=== PATIENT | male | born 1960 | race Caucasian/White ===

== ENCOUNTER 2017-12-14 05:53 | Inpatient (IN) | payer MEDICARE ==
[2017-12-14] VITALS (23 sets, daily range): BP systolic 132–169; BP diastolic 62–96
[~2017-12-14] VITALS: Ht 170.2 cm; Wt 161.5 kg
[2017-12-14 06:30] LABS: BASOPHILS % 0.3 % (0.0-1.0); EOSINOPHILS # (AUTO) 0.5 (0.0-0.4); EOSINOPHILS % 4.5 % (0.0-6.0); HEMATOCRIT 24.9 % (38.2-49.6); HEMOGLOBIN 7.4 g/dL (14.0-18.0); LYMPHOCYTES # (AUTO) 1.9 (1.0-3.2); LYMPHOCYTES % 18.3 % (18.0-39.1); MEAN CORPUSCULAR HEMOGLOBIN 26.5 pg (28-32); MEAN CORPUSCULAR HGB CONC 29.7 g/dL (31-35); MEAN CORPUSCULAR VOLUME 89.2 fL (81-99); MONOCYTES # (AUTO) 0.9 (0.2-0.8); MONOCYTES % 9.3 % (4.4-11.3); NEUTROPHILS # (AUTO) 6.8 (2.1-6.9); PLATELET COUNT 232 x10e3/uL (140-360); RED BLOOD COUNT 2.79 x10e6/uL (4.3-5.7); RED CELL DISTRIBUTION WIDTH 16.9 % (11.7-14.4)
[2017-12-14 06:42] LABS: INR 1.39
[2017-12-14 06:43] LABS: PARTIAL THROMBOPLASTIN TIME 38.2 seconds (23.8-35.5)
[2017-12-14 06:50] LABS: ALBUMIN 2.6 g/dL (3.5-5.0); ALBUMIN/GLOBULIN RATIO 0.6 (0.8-2.0); ANION GAP 13.1 mmol/L (8-16); CALCIUM 9.2 mg/dL (8.4-10.2); CREATININE, SERUM 1.35 mg/dL (0.72-1.25); POTASSIUM 4.1 mmol/L (3.5-5.1)
[2017-12-14 06:56] LABS: CREATINE KINASE MB 0.9 ng/mL (0-5.0)
--- NOTE | 2017-12-14 07:00 | Diagnostic Imaging Report ---
EXAM: CHEST SINGLE (PORTABLE), AP 1 view INDICATION: Shortness of breath COMPARISON: None FINDINGS: LINES/TUBES: Tracheostomy tube LUNGS: Pulmonary edema PLEURA: Likely small bilateral pleural effusions. HEART AND MEDIASTINUM: Enlargement of the cardiomediastinal silhouette. BONES AND SOFT TISSUES: No acute findings. IMPRESSION: Cardiomegaly and pulmonary edema. Signed by: Dr. Shayy Miranda M.D. on 12/14/2017 6:56 AM
[2017-12-14] MEDS ORDERED: DEXTROSE 50% SYRINGE 50 ML IV PRN (07:15)
[2017-12-14] MEDS ORDERED: FUROSEMIDE INJ 10 MG/ML 4 ML VIAL IV ONE ×2 (07:15→13:00)
[2017-12-14] MEDS ORDERED: SODIUM CHLORIDE 0.9% 250ML 250 ML IV ONE (07:15)
[2017-12-14] MEDS: INSULIN REGULAR, HUMAN 100 UNIT/1 ML 3ML VIAL SQ SCH ×4 (10:00→21:00)
[2017-12-14] MEDS: FUROSEMIDE INJ 10 MG/ML 2 ML VIAL IV SCH ×2 (12:00→14:16)
--- NOTE | 2017-12-14 13:44 | History and Physical ---
CHIEF COMPLAINT: Shortness of breath and hypoxia. HISTORY OF PRESENT ILLNESS: This is a 57-year-old white man who was [facility], to [facility] emergency room because of worsening shortness of breath and hypoxia. Patient was also found to have a hemoglobin of 7.1 g/dl at the penitentiary facility. Here at [facility] the patient was found to have a hemoglobin of 7.4 g/dl with an RDW of 16.9 and MCV 89. Patient's white blood cell count was 10,000 with 67% segmented neutrophils. The patient's PT and INR were 16 and 1.39 respectively. Patient's BUN and creatinine were 30 and 1.35 respectively. Patient's B-type natriuretic peptide was high at 1190. Patient had a chest x-ray done in the emergency room which revealed cardiomegaly and pulmonary edema. The patient denies any melena or hematochezia. Patient states that he has had shortness of breath for the past few days. Patient has a tracheostomy tube in place due to chronic respiratory failure. Patient was placed on the ventilator when he arrived here in the emergency room late last night. Patient will be admitted to the intensive care unit for further evaluation and treatment. REVIEW OF SYSTEMS GENERAL: Weight has been stable. No fever or chills. HEENT: No headaches. No visual changes. CARDIOVASCULAR/RESPIRATORY: Worsening shortness of breath the last few days. Denies any cough. GI: Denies any melena or hematochezia. : Denies any UTI symptoms. NEUROMUSCULAR: No limb weakness or numbness, but he has been bedbound for the last 2 months. ALLERGIES: PENICILLIN. PAST MEDICAL HISTORY 1. Chronic respiratory failure (patient has a tracheostomy tube in place). 2. Hypertensive heart disease. 3. Extreme obesity. 4. Stage 3 chronic kidney disease. 5. Polysubstance abuse (history of methamphetamine and crack cocaine use). 6. Chronic oxygen use. FAMILY HISTORY: Multiple family members with diabetes mellitus. SOCIAL HISTORY: This man is single. Previously he was living with his adult brother in a house. Patient does not smoke tobacco, but in the past he smoked methamphetamine as well as crack cocaine. Drinks alcohol rarely. He is employed as a computer application integration architect. SURGICAL HISTORY 1. Tracheostomy tube placement twice. 2. Tonsillectomy. 3. Forehead cyst removal. 4. Abdominal hernia repair. 5. G-tube placement and removal. LONG TERM MEDICATIONS: Not available. PHYSICAL EXAMINATION GENERAL: He is awake, alert and fully oriented. He is on a ventilator via the tracheostomy tube. He can vocalize without difficulty. He does not appear to be in any distress. He is very pleasant and cooperative with exam. VITAL SIGNS: Height is 5 feet 10 inches. Weight is 340 pounds. Calculated body mass index is 53. Blood pressure 139/57, pulse 90, respiratory rate is 18, oxygen saturation is 100% on ventilator, temperature is 98.1. INTEGUMENT: Skin is warm and dry. Slight pallor. No jaundice, diaphoresis. HEENT: Anicteric sclerae with moist mucous membranes. NECK: Supple. He has a tracheostomy tube in place which is connected to the ventilator. CARDIOVASCULAR: Distant heart sounds. Tachycardic rate with regular rhythm. Patient has an S3 gallop. LUNGS: No rales, no rhonchi, no wheezes. ABDOMEN: Obese yet benign. EXTREMITIES: No edema or deformity. NEUROLOGICALLY: Intact. DIAGNOSES 1. Hbwyv-he-chxcssc respiratory failure likely secondary to acute congestive heart failure. 2. Chronic respiratory failure (a tracheostomy tube in place). 3. Imcub-tp-wbealkd systolic congestive heart failure likely exacerbated by the patient's acute anemia. 4. High output failure secondary to acute anemia. 5. Cerebrovascular disease. 6. Debility. 7. Extreme obesity, body mass index of 53. 8. Stage 3 chronic kidney disease. PLAN 1. Hemoccult stool. 2. Transfuse blood. 3. Intravenous furosemide. 4. Order 2-D echocardiogram. 5. Follow renal function. 6. Consult risk specialist to help with ventilator management. 7. I recommend that patient avoid all illicit drugs, particularly stimulants such as methamphetamines and cocaine. 8. Rule out myocardial infarction. I spent 75 minutes in the care of this intensive care unit patient. Job#: [id number] EV [email or web address]
[2017-12-14] MEDS ORDERED: MEROPENEM 1GM 100 ML IV SCH (14:00)
[2017-12-14 14:27] LABS: CREATINE KINASE MB 0.9 ng/mL (0-5.0)
[2017-12-14] MEDS ORDERED: NORCO 7.5-3251 EACH PO (14:58)
[2017-12-14] MEDS ORDERED: GABAPENTIN300 MG PO (14:58)
[2017-12-14] MEDS ORDERED: VITAMIN D35000 UNI1 PO (14:58)
[2017-12-14] MEDS ORDERED: FINASTERIDE5 MG PO (14:58)
[2017-12-14] MEDS ORDERED: COENZYME Q10100 M1 PO (14:58)
[2017-12-14] MEDS ORDERED: IPRAT-ALBUT 0.5-3 ML INH (14:58)
[2017-12-14] MEDS ORDERED: FLOMAX0.4 MG PO (14:58)
[2017-12-14] MEDS ORDERED: COLACE100 MG PO (14:58)
[2017-12-14] MEDS ORDERED: COZAAR100 MG PO (14:58)
[2017-12-14] MEDS ORDERED: NOVOLOG100 UNITS1 (14:58)
[2017-12-14] MEDS ORDERED: METHOCARBAMOL750 MG PO (14:58)
[2017-12-14] MEDS ORDERED: LASIX20 MG PO (14:58)
[2017-12-14] MEDS ORDERED: EMU-LAC HYDRAT120 ML TOP (14:58)
[2017-12-14] MEDS ORDERED: LEVEMIR100 UNIT/1 SC ×2 (14:58)
[2017-12-14] MEDS ORDERED: POLYETHYLENE GL17 GM PO (14:58)
[2017-12-14] MEDS ORDERED: PANTOPRAZOLE SO40 MG PO (14:58)
[2017-12-14] MEDS ORDERED: BENADRYL25 M1 PO (14:58)
[2017-12-14] MEDS ORDERED: OCUVITE TABLET1 EAC1 PO (14:58)
[2017-12-14] MEDS ORDERED: METOPROLOL TART25 MG PO (14:58)
[2017-12-14] MEDS ORDERED: ASPIRIN CHEW81 MG PO (14:58)
[2017-12-14] MEDS ORDERED: PRANDIN1 MG PO (14:58)
[2017-12-14] MEDS ORDERED: ZINC OXIDE56.7 GM (14:58)
[2017-12-14] MEDS ORDERED: MAGNESIUM OXID400 MG PO (14:58)
[2017-12-14] MEDS ORDERED: LEVAQUIN250 MG PO (14:58)
[2017-12-14] MEDS ORDERED: MUPIROCIN22 GM TOP (14:58)
--- NOTE | 2017-12-14 16:10 | Consultation ---
DATE OF CONSULTATION: December 14, 2017 PULMONARY CONSULTATION REASON FOR CONSULTATION: Tracheostomy, shortness of breath. HISTORY OF PRESENT ILLNESS: Mr. Michel is a 57-year-old male known to me from [facility]. Patient was transferred to [facility] from long-term acute care. He has been bedbound for almost 12 to 13 years. It started with a stroke. He has history of cardiomyopathy, chronic wounds in the leg and chronic venous stasis in the leg as well. He had a history of obstructive sleep apnea before the tracheostomy. He required prolonged weaning, what he described as was having pneumonia. The records were not very clear why he got pneumonia, and he was initially on a ventilator, then required prolonged weaning and that resulted in a tracheostomy. Recently I was treating him for pneumonia at [facility] as patient's secretions were increasing. His oxygen requirement was increasing, and he was bringing up phlegm as well. His chest x-ray showed bilateral infiltrate. He was sent here because, according to the patient, the trach tube dislodged and oxygen saturation went down to 84% and he was sent here. He is doing very well now. He is on mechanical ventilator, and settings were reviewed. He is able to eat with mechanical ventilator, which he was doing at [facility]. REVIEW OF SYSTEMS: GENERAL: Denies any chills. HEAD: Denies any head trauma. ENT: Denies any earache. CVS: Denies any chest pain. RESPIRATORY: Shortness of breath. GI: Denies any nausea or vomiting. REST OF THE REVIEW OF SYSTEMS: Negative except as in history of present illness. PAST MEDICAL HISTORY: Hypertension, diabetes, morbid obesity, history of obstructive sleep apnea, history of congestive heart failure, history of multiple strokes in the past, and patient has been bedbound with chronic skin changes in both lower extremities, chronic ulcers in both lower extremities. FAMILY AND SOCIAL HISTORY: He does not smoke, does not drink. Lives at [facility] correction. PHYSICAL EXAMINATION: VITALS: Temperature 98.3, pulse of 53, blood pressure 109/50, respiratory rate of 18. O2 sat 97%. HEENT: Head atraumatic, normocephalic. NECK: Supple. He had tracheostomy. CHEST: Crackles bilaterally. HEART: S1 and S2 audible. ABDOMEN: Soft, distended. EXTREMITIES: Bilateral pedal edema and chronic skin changes. NEUROLOGIC: He is awake, alert, oriented, following commands. LABORATORY DATA: White count of 10,000. Hemoglobin 7.4. Platelets 232. CHEMISTRY: Sodium 141, potassium 4.1, chloride 99, BUN 30, bicarb 33, creatinine 1.35. BNP was 1190. IMPRESSION: Mr. Michel is a 57-year-old male who has a history of being bedbound due to strokes. He has history of chronic tracheostomy, chronic ventilator. Patient has been in bedbound situation for almost 12+ years. Currently he was sent here for hypoxia and dislodgement of the tracheostomy tube. CURRENT PROBLEMS: 1. Chronic hypoxic and hypercapnic respiratory failure. 2. Tracheostomy tube. 3. Chest x-ray reviewed. Likely has fluid overload and congestive heart failure. Possibility of pneumonia cannot be ruled out. 4. Chronic skin changes and venous stasis in both lower extremities. 5. Bedbound. PLAN: 1. I will start the patient on IV aztreonam and send off sputum cultures. 2. Will give another dose of Lasix 40 mg IV. Patient received 80 IV in the emergency room. 3. Continue the patient on ventilator for now. We tried weaning him from the ventilator at [facility], and he is still on pressure support and SIMV and we were unable to wean him from the ventilator completely. 4. He has been eating with the ventilator, which will be continued. 5. Anemia. Etiology not clear. Patient receiving blood transfusion. Will need workup for anemia. Thank you for this consult. CC TIME 45 MIN Job#: [id number] EV MTDJennifer
[2017-12-14] MEDS: MEROPENEM 1 GM VIAL IV SCH (23:21)
[2017-12-15] VITALS (78 sets, daily range): BP systolic 98–181; BP diastolic 57–138
[2017-12-15 02:43] LABS: CREATINE KINASE MB 0.8 ng/mL (0-5.0)
[2017-12-15 05:07] LABS: BASOPHILS % 0.3 % (0.0-1.0); EOSINOPHILS # (AUTO) 0.4 (0.0-0.4); EOSINOPHILS % 4.8 % (0.0-6.0); HEMATOCRIT 26.6 % (38.2-49.6); LYMPHOCYTES # (AUTO) 1.4 (1.0-3.2); LYMPHOCYTES % 15.8 % (18.0-39.1); MEAN CORPUSCULAR HEMOGLOBIN 26.5 pg (28-32); MEAN CORPUSCULAR HGB CONC 30.1 g/dL (31-35); MEAN CORPUSCULAR VOLUME 88.1 fL (81-99); MONOCYTES # (AUTO) 0.8 (0.2-0.8); MONOCYTES % 9.1 % (4.4-11.3); NEUTROPHILS # (AUTO) 6.1 (2.1-6.9); NEUTROPHILS % 69.4 % (38.7-80.0); PLATELET COUNT 215 x10e3/uL (140-360); RED BLOOD COUNT 3.02 x10e6/uL (4.3-5.7); RED CELL DISTRIBUTION WIDTH 16.5 % (11.7-14.4)
[2017-12-15 05:45] LABS: ALANINE AMINOTRANSFERASE 9 IU/L (0-55); ALBUMIN 2.4 g/dL (3.5-5.0); ALBUMIN/GLOBULIN RATIO 0.6 (0.8-2.0); ALKALINE PHOSPHATASE 120 IU/L (40-150); ANION GAP 13.7 mmol/L (8-16); BLOOD UREA NITROGEN 29 mg/dL (7-26); BUN/CREATININE RATIO 26 (6-25); CALCIUM 9.2 mg/dL (8.4-10.2); CARBON DIOXIDE 35 mmol/L (22-29); CHLORIDE 97 mmol/L (98-107); EST GLOMERULAR FILTRATION RATE > 60 ML/MIN (60-); GLUCOSE 112 mg/dL (74-118); POTASSIUM 3.7 mmol/L (3.5-5.1); SODIUM 142 mmol/L (136-145)
[2017-12-15] MEDS: MEROPENEM 1 GM VIAL IV SCH ×3 (06:32→22:11)
[2017-12-15] MEDS: INSULIN REGULAR, HUMAN 100 UNIT/1 ML 3ML VIAL SQ SCH ×4 (07:30→20:25)
--- NOTE | 2017-12-15 09:42 | Diagnostic Imaging Report ---
PROCEDURE: A single AP view of the chest. COMPARISON: Patients [facility], , CHEST SINGLE (PORTABLE), 12/14/2017, 6:37. INDICATIONS: CONGESTIVE HEART FAILURE FINDINGS: Lines/tubes: Tracheostomy tube in place. Lungs: No change in diffuse pulmonary edema. Pleura: Left pleural effusion. Heart and mediastinum: The heart remains enlarged. Bones: No acute bony abnormality. IMPRESSION: Unchanged cardiomegaly with diffuse pulmonary edema. Ortiz Noonan D.O. Dictated by: Ortiz Noonan D.O. on 12/15/2017 at 7:45 Electronically approved by: Ortiz Noonan D.O. on 12/15/2017 at 7:45
[2017-12-15] MEDS: HYDROCODONE/APAP 7.5MG-325MG 1 EA TAB PO PRN (14:31)
[2017-12-16] VITALS (45 sets, daily range): BP systolic 116–171; BP diastolic 53–98
[2017-12-16] MEDS: MEROPENEM 1 GM VIAL IV SCH ×3 (05:16→22:22)
[2017-12-16] MEDS: INSULIN REGULAR, HUMAN 100 UNIT/1 ML 3ML VIAL SQ SCH ×4 (07:23→20:29)
[2017-12-16] MEDS: FUROSEMIDE INJ 10 MG/ML 4 ML VIAL IV SCH (08:59)
[2017-12-16] MEDS: PANTOPRAZOLE SOD 40 MG TABEC PO SCH (16:26)
[2017-12-16] MEDS: HYDROCODONE/APAP 7.5MG-325MG 1 EA TAB PO PRN (16:39)
[2017-12-16] MEDS: METOPROLOL TARTRATE 25 MG TAB PO SCH (17:59)
[2017-12-16] MEDS: DOCUSATE SODIUM 100 MG CAP PO SCH (20:28)
[2017-12-17] VITALS (20 sets, daily range): BP systolic 138–181; BP diastolic 56–98
[2017-12-17 05:19] LABS: BASOPHILS % 0.6 % (0.0-1.0); EOSINOPHILS # (AUTO) 0.7 (0.0-0.4); EOSINOPHILS % 9.5 % (0.0-6.0); HEMATOCRIT 29.2 % (38.2-49.6); HEMOGLOBIN 8.7 g/dL (14.0-18.0); LYMPHOCYTES # (AUTO) 1.4 (1.0-3.2); MEAN CORPUSCULAR HEMOGLOBIN 26.4 pg (28-32); MEAN CORPUSCULAR HGB CONC 29.8 g/dL (31-35); MEAN CORPUSCULAR VOLUME 88.5 fL (81-99); MONOCYTES # (AUTO) 0.7 (0.2-0.8); MONOCYTES % 10.6 % (4.4-11.3); PLATELET COUNT 231 x10e3/uL (140-360); RED CELL DISTRIBUTION WIDTH 16.4 % (11.7-14.4)
[2017-12-17] MEDS: MEROPENEM 1 GM VIAL IV SCH ×3 (05:42→21:10)
[2017-12-17 05:49] LABS: ANION GAP 10.7 mmol/L (8-16); BLOOD UREA NITROGEN 24 mg/dL (7-26); BUN/CREATININE RATIO 29 (6-25); CALCIUM 9.3 mg/dL (8.4-10.2); CARBON DIOXIDE 36 mmol/L (22-29); CHLORIDE 98 mmol/L (98-107); CREATININE, SERUM 0.83 mg/dL (0.72-1.25); EST GLOMERULAR FILTRATION RATE > 60 ML/MIN (60-); GLUCOSE 123 mg/dL (74-118); POTASSIUM 3.7 mmol/L (3.5-5.1); SODIUM 141 mmol/L (136-145)
--- NOTE | 2017-12-17 06:33 | Diagnostic Imaging Report ---
CHEST SINGLE (PORTABLE), 12/17/2017 6:00 AM Technique: CHEST SINGLE (PORTABLE) Comparison: 12/15/2017 Clinical history: Congestive heart failure Findings: See Impression Impression: Very limited by portable technique, motion and body habitus 1. Lines/Tubes: Tracheostomy in place. 2. Stable enlarged cardiomediastinal silhouette. 3. Grossly unchanged bilateral pulmonary opacities, possibly underlying edema, and retrocardiac atelectasis/consolidation. Signed by: Dr Hawa Mayers MD on 12/17/2017 6:30 AM
[2017-12-17] MEDS: INSULIN REGULAR, HUMAN 100 UNIT/1 ML 3ML VIAL SQ SCH ×4 (07:14→21:10)
[2017-12-17] MEDS: METOPROLOL TARTRATE 25 MG TAB PO SCH ×3 (09:00→17:18)
[2017-12-17] MEDS: FUROSEMIDE INJ 10 MG/ML 4 ML VIAL IV SCH (09:57)
[2017-12-17] MEDS: ASPIRIN 81 MG CHEW TAB PO SCH (09:57)
[2017-12-17] MEDS: TAMSULOSIN HCL 0.4 MG CAP PO SCH (09:58)
[2017-12-17] MEDS: REPAGLINIDE 1 MG TAB PO SCH (09:58)
[2017-12-17] MEDS: PANTOPRAZOLE SOD 40 MG TABEC PO SCH ×2 (09:58→17:15)
[2017-12-17] MEDS: LOSARTAN POTASSIUM 100 MG TAB PO SCH (09:58)
[2017-12-17] MEDS: FINASTERIDE 5 MG TAB PO SCH (09:58)
[2017-12-17] MEDS: DOCUSATE SODIUM 100 MG CAP PO SCH (21:08)
[2017-12-17] MEDS: HYDROCODONE/APAP 7.5MG-325MG 1 EA TAB PO PRN (21:11)
[2017-12-18] VITALS (19 sets, daily range): BP systolic 143–197; BP diastolic 64–94
[2017-12-18] MEDS: MEROPENEM 1 GM VIAL IV SCH ×2 (05:17→15:16)
[2017-12-18] MEDS: INSULIN REGULAR, HUMAN 100 UNIT/1 ML 3ML VIAL SQ SCH ×4 (07:30→19:24)
[2017-12-18] MEDS: FUROSEMIDE INJ 10 MG/ML 4 ML VIAL IV SCH (08:06)
[2017-12-18] MEDS: LOSARTAN POTASSIUM 100 MG TAB PO SCH (08:06)
[2017-12-18] MEDS: PANTOPRAZOLE SOD 40 MG TABEC PO SCH ×2 (08:06→17:06)
[2017-12-18] MEDS: REPAGLINIDE 1 MG TAB PO SCH (08:06)
[2017-12-18] MEDS: ASPIRIN 81 MG CHEW TAB PO SCH (08:06)
[2017-12-18] MEDS: TAMSULOSIN HCL 0.4 MG CAP PO SCH (08:06)
[2017-12-18] MEDS: FINASTERIDE 5 MG TAB PO SCH (08:06)
[2017-12-18] MEDS: METOPROLOL TARTRATE 25 MG TAB PO SCH ×3 (08:08→17:00)
[2017-12-18] MEDS: HYDROCODONE/APAP 7.5MG-325MG 1 EA TAB PO PRN (12:10)
[2017-12-18] MEDS ORDERED: HYDRALAZINE HCL 20 MG/ML VIAL IV PRN (17:15)
[2017-12-18] MEDS: DOCUSATE SODIUM 100 MG CAP PO SCH (22:53)
[2017-12-19] VITALS (22 sets, daily range): BP systolic 135–185; BP diastolic 56–82
[2017-12-19] MEDS: MEROPENEM 1 GM VIAL IV SCH ×3 (00:30→14:00)
[2017-12-19] MEDS: INSULIN REGULAR, HUMAN 100 UNIT/1 ML 3ML VIAL SQ SCH ×3 (07:30→15:47)
[2017-12-19] MEDS: ASPIRIN 81 MG CHEW TAB PO SCH (07:39)
[2017-12-19] MEDS: FUROSEMIDE INJ 10 MG/ML 4 ML VIAL IV SCH (07:39)
[2017-12-19] MEDS: LOSARTAN POTASSIUM 100 MG TAB PO SCH (07:40)
[2017-12-19] MEDS: REPAGLINIDE 1 MG TAB PO SCH (07:40)
[2017-12-19] MEDS: METOPROLOL TARTRATE 25 MG TAB PO SCH ×2 (07:40→16:27)
[2017-12-19] MEDS: TAMSULOSIN HCL 0.4 MG CAP PO SCH (07:40)
[2017-12-19] MEDS: DOCUSATE SODIUM 100 MG CAP PO SCH (07:41)
[2017-12-19] MEDS: PANTOPRAZOLE SOD 40 MG TABEC PO SCH ×2 (07:41→16:28)
[2017-12-19] MEDS: FINASTERIDE 5 MG TAB PO SCH (07:41)
[2017-12-19] MEDS: HYDROCODONE/APAP 7.5MG-325MG 1 EA TAB PO PRN (19:00)
[2017-12-19] MEDS ORDERED: INSULIN REGULAR, HUMAN 100 UNIT/1 ML 3ML VIAL SQ SCH (21:00)
== END 2017-12-19 21:00 | DRG 207 ==
LOC: ER 05:53 → ERHOLD 07:06 → ICU 18:15
PROC: 5A1955Z Respiratory Ventilation, Greater than 96 Consecutive Hours (ICD-10-PCS; principal; 2017-12-14)
PROC: 30233N1 Transfusion of Nonautologous Red Blood Cells into Peripheral Vein, Percutaneous Approach (ICD-10-PCS; 2017-12-14)
DX: J96.21 Acute and chronic respiratory failure with hypoxia (principal); J69.0 Pneumonitis due to inhalation of food and vomit; I50.31 Acute diastolic (congestive) heart failure; I13.0 Hypertensive heart and chronic kidney disease with heart failure and stage 1 through stage 4 chronic kidney disease, or unspecified chronic kidney disease; Z68.43 Body mass index [BMI] 50.0-59.9, adult; I42.9 Cardiomyopathy, unspecified; Z74.01 Bed confinement status; E66.01 Morbid (severe) obesity due to excess calories; G47.33 Obstructive sleep apnea (adult) (pediatric); I27.9 Pulmonary heart disease, unspecified; N18.3 Chronic kidney disease, stage 3 (moderate); I67.9 Cerebrovascular disease, unspecified
CPT/HCPCS: 36415; 36430; 51700; 71045; 80048; 80053; 82550; 82553; 82948; 83605; 83880; 84484; 85025; 85610; 85730; 86850; 86900; 86920; 87070; 87205; 93005; 93306; 94002; 94003; 96372; 99285; J1940; J2185; J7050; P9016